=== PATIENT | female | born 1960 | race Two or more races ===

== ENCOUNTER 2016-08-03 10:37 | Emergency (ER) | payer OTHER ==
[~2016-08-03] VITALS: Ht 157.5 cm; Wt 58.9 kg
[2016-08-03] MEDS ORDERED: SODIUM CHLORIDE 0.9% 1,000 ML IV ONE (11:02)
[2016-08-03] MEDS ORDERED: DIAZEPAM 5 MG/ML, 2ML ONE (11:07)
[2016-08-03] MEDS ORDERED: ONDANSETRON 2MG/ML, 2ML ONE (11:07)
[2016-08-03] MEDS ORDERED: MECLIZINE CHEWABLE 25 MG TAB ONE (11:07)
[2016-08-03 11:30] LABS: HEMOGLOBIN 14.9 g/dL (11.7-16.4)
[2016-08-03] MEDS ORDERED: ONDANSETRON 2MG/ML, 2ML IVPush ONE (11:30)
[2016-08-03] MEDS ORDERED: SODIUM CHLORIDE 0.9% 1,000ML IVBOLUS ONE (11:30)
[2016-08-03] MEDS ORDERED: DIAZEPAM 5 MG/ML, 2ML IVPush ONE (11:30)
[2016-08-03] MEDS ORDERED: SODIUM CHLORIDE FLUSH 10ML SYR IVF ONE (11:30)
[2016-08-03] MEDS ORDERED: MECLIZINE CHEWABLE 25 MG TAB PO ONE (11:30)
[2016-08-03 11:39] LABS: ASPARTATE AMINO TRANSFERASE 18 U/L (15-37); BLOOD UREA NITROGEN 11 mg/dL (7-18)
[2016-08-03 11:45] LABS: IS PT STATUS REG ER OR PRE ER? YES
[2016-08-03 12:58] LABS: PATH.CAST-FLAG NOT PRESENT; SPERM-FLAG NOT PRESENT; SRC-FLAG NOT PRESENT; XTAL-FLAG NOT PRESENT; YLC-FLAG NOT PRESENT
[2016-08-03 14:43] VITALS: BP 112/73
== END 2016-08-03 14:12 | disposition home or self-care (01) ==
LOC: ED 13:39
DX: R42 Dizziness and giddiness (principal); E78.5 Hyperlipidemia, unspecified; R11.0 Nausea
CPT/HCPCS: 36415; 70450; 80053; 81001; 84484; 85025; 87086; 93005

== ENCOUNTER → 2016-11-08 | Outpatient (CLI) | payer OTHER | END | disposition home or self-care (01) | LOC: CFH 16:04 | PROVIDERS: ATTEND Family Medicine | DX: Z12.31 Encounter for screening mammogram for malignant neoplasm of breast (principal) | CPT/HCPCS: G0202 ==

== ENCOUNTER → 2016-12-18 | Outpatient (CLI) | payer OTHER | END | disposition home or self-care (01) | LOC: CFH 15:38 | PROVIDERS: ATTEND Family Medicine | DX: M41.86 Other forms of scoliosis, lumbar region (principal) | CPT/HCPCS: 72100 ==